=== PATIENT | female | born 1990 | race Caucasian/White ===

== ENCOUNTER 2025-03-10 21:17 | Emergency (ER) | payer BC, SELFPAY ==
[2025-03-10 21:19] VITALS: BP 136/91; PULSE 89; RESP 20; TEMP 36.6; O2SAT 100
--- NOTE | 2025-03-10 21:27 | ED_ITS ---
HPI - Animal Bite General Chief Complaint: Animal Bite Stated Complaint: cat bite Time Seen by Provider: 03/10/25 21:20 Source: patient and family Limitations: no limitations History of Present Illness HPI narrative: this is a 34-year-old female who presents with a cat bite with a small puncture wound to the right hand with some mild drainage and swelling otherwise has good range of motion no fever chills no shortness of breath no audible wheezing. complaint: animal bite Onset (ago): hour(s) Animal: cat Description of animal: household pet Mechanism: bite Location: other Location - Extremities: Right: hand ( swollen and small puncture wound) Pain description: sharp Severity scale (1-10): 4 Context: unprovoked Related Data Patient tetanus UTD: No Allergies Allergy/AdvReac Type Severity Reaction Status Date / Time No Known Allergies Allergy Verified 03/10/25 21:23 Review of Systems Review of Systems: All systems reviewed & are unremarkable except as noted in HPI and below PMFSH Past Medical History Medical History Patient denies medical problems Exam Const: General: healthy appearing and no acute distress Nutritional Appearance: well nourished Orientation/consciousness: patient oriented x3 Limitations: no limitations Neck: Neck: normal visual inspection Chest: Chest palpation & inspection: normal inspection of the chest Resp: Effort & Inspection: normal respiratory effort Auscultation: clear to auscultation bilaterally Cardio: Rate: regular rate Rhythm: regular rhythm GI: GI Palp: Yes Soft to palpation Skin: Wounds: wounds noted Other: small puncture wound to the left and right hand Neuro: General: patient oriented x3 and moves all extremities Course Course Emergency Course: cat bite with a small puncture wound to the hands and patient updated with her tetanus and a dose of Levaquin 500mg PO administered. Vital Signs Vital signs: Vital Signs Temperature 36.6 C 03/10/25 21:19 Pulse Rate 89 03/10/25 21:19 Respiratory Rate 20 03/10/25 21:19 Blood Pressure 136/91 H 03/10/25 21:19 Pulse Oximetry 100 03/10/25 21:19 Oxygen Delivery Room Air 03/10/25 21:19 Temperature 36.6 C 03/10/25 21:19 Pulse Rate 89 03/10/25 21:19 Respiratory Rate 20 03/10/25 21:19 Blood Pressure 136/91 H 03/10/25 21:19 Pulse Oximetry 100 03/10/25 21:19 Oxygen Delivery Room Air 03/10/25 21:19 Critical Care Time Critical Care Time Critical Care Time: No Discharge Plan Discharge Clinical Impression: Cat bite Patient Disposition: Home Condition: Stable Instructions: Antibiotic Form, Animal Bite (ED) Additional Instructions: Advised to take medication as prescribed and follow with primary care physician if symptoms persist or worsen, can use Tylenol or Motrin along with antibiotics. Patient Language: Croatian Prescriptions: New levofloxacin 500 mg tablet 500 mg PO DAILY 6 Days Qty: 6 0RF Follow-up/Referrals: Ashley,Mary Alfonso [Primary Care Provider] Time of Disposition: 21:31
[2025-03-10] MEDS: TETANUS,DIPHTHERIA,AC PERTUSSIS ADULT 0.5 ML (ADACEL) IM (21:31)
== END 2025-03-10 21:38 | disposition home or self-care (01) ==
LOC: CHSED 21:33
PROVIDERS: Emergency Provider Emergency Medicine; PCP Family Medicine Adult Medicine
DX: S61.451A Open bite of right hand, initial encounter (principal); W55.01XA Bitten by cat, initial encounter; Z23 Encounter for immunization
CPT/HCPCS: 90471; 90715; 99283; A9270